=== PATIENT | male | born 1940 | race African-American/Black ===

== ENCOUNTER 2017-04-17 10:35 | Emergency (ER) | payer MEDICARE, OTHER ==
[~2017-04-17] VITALS: Ht 167.6 cm; Wt 81.6 kg
[~2017-04-17 10:35] MED LIST: AMLO1CAP6 PO; ASPI-618 PO; ATOR10TA PO; Acetaminophen PO; BUPR300T52 PO; Blood Sugar Diagnostic VI; DUTA0.5C PO; ERGO500047 PO; ESCI20TA PO; Metformin Hcl PO; OMEG1CAP GT; PANT40TA2 PO; TRAZ-144 PO
[2017-04-17] MEDS ORDERED: IV NORMAL SALINE 1000 ML BAG IV ONE (11:00)
--- NOTE | 2017-04-17 11:00 | NUR ---
DR CARTAGENA AT THE BEDSIDE FOR EVAL AND EXAM.
[2017-04-17 11:21] LABS: BASOPHILS % (AUTO) 0.6 % (0.0-2.0); EOSINOPHILS # (AUTO) 0.1 K/uL (0.0-0.7); EOSINOPHILS % (AUTO) 0.9 % (0.0-7.0); HEMATOCRIT 45.1 % (40-50); HEMOGLOBIN 15.2 G/DL (14.0-18.0); LYMPHOCYTES # (AUTO) 1.8 K/UL (0.8-4.8); LYMPHOCYTES % (AUTO) 25.2 % (20.5-51.5); MEAN CORPUSCULAR HEMOGLOBIN 28.6 UUG (27.0-31.0); MEAN CORPUSCULAR HGB CONC 34 g/dL (32.0-37.0); MEAN CORPUSCULAR VOLUME 84.9 FL (82.0-92.0); MONOCYTES # (AUTO) 0.3 K/UL (0.1-1.30); MONOCYTES % (AUTO) 4.6 % (0.0-11.0); NEUTROPHILS # (AUTO) 5.1 K/UL (1.8-8.9); NEUTROPHILS % (AUTO) 68.7 % (38.5-71.5); PLATELET COUNT (AUTO) 225 K/UL (150-450); RED BLOOD CELL COUNT(AUTO) 5.31 MIL/UL (4.7-6.1); WHITE BLOOD COUNT (AUTO) 7.3 K/UL (4.0-11.2)
[2017-04-17 11:33] LABS: CARBON DIOXIDE 25 mmol/L (21-32); CHLORIDE 103 mmol/L (98-107); CREATININE 1.2 mg/dL (0.6-1.3); GLUCOSE 133 mg/dL (74-106); POTASSIUM 3.9 mmol/L (3.5-5.1); UREA NITROGEN, BLOOD 16 mg/dL (7-18)
[2017-04-17 11:38] LABS: ALANINE AMINOTRANSFERASE 29 U/L (16-63); ALKALINE PHOSPHATASE 57 U/L (50-136); ASPARTATE AMINOTRANSFERASE 16 U/L (15-37); BILIRUBIN,DIRECT 0.1 mg/dL (0.0-0.2); BILIRUBIN,TOTAL 0.5 mg/dL (0.2-1.0); LIPASE 151 U/L (73-393); TOTAL PROTEIN, SERUM 7.7 g/dL (6.4-8.2)
[2017-04-17] MEDS ORDERED: ONDANSETRON IV *ER 4 MG/2 ML VIAL IV ONE (11:45)
[2017-04-17] MEDS ORDERED: ONDANSETRON 4 MG/2 ML VIAL ONE (11:54)
--- NOTE | 2017-04-17 12:14 | NUR ---
PT ABLE TO TOLORATE PO, DENIES PAIN AND NAUSEA.
[2017-04-17 12:33] VITALS: BP 150/76
--- NOTE | 2017-04-17 12:33 | NUR ---
Patient discharged to home in stable conditon. Written and verbal after care instructions given. Patient verbalizes understanding of instructions.
--- NOTE | 2017-04-17 12:33 | NUR ---
IV removed. Catheter intact and site benign. Pressure and 4x4 gauze applied to site. No bleeding noted.
== END 2017-04-17 12:34 | disposition home or self-care (01) ==
LOC: ER 10:35
DX: K44.9 Diaphragmatic hernia without obstruction or gangrene (principal); I10 Essential (primary) hypertension; E78.00 Pure hypercholesterolemia, unspecified; E11.9 Type 2 diabetes mellitus without complications; F41.9 Anxiety disorder, unspecified; F17.200 Nicotine dependence, unspecified, uncomplicated; E78.5 Hyperlipidemia, unspecified; Z79.82 Long term (current) use of aspirin
CPT/HCPCS: 36415; 71010; 74176; 80048; 80076; 82962; 83605; 83690; 84484; 85025; 85730; 87040; 93005; 96360; 96374; 99285; A4663; J2405; J7030; 70030-TC

== ENCOUNTER 2017-10-30 00:49 | Emergency (ER) | payer MEDICARE, OTHER ==
[~2017-10-30] VITALS: Ht 175.3 cm; Wt 92.5 kg
[~2017-10-30 00:49] MED LIST changes: +ERGO500014 PO; -ERGO500047 PO
[2017-10-30] MEDS ORDERED: predniSONE 20 MG TABLET PO ONE (01:45)
[2017-10-30] MEDS ORDERED: AZITHROMYCIN 250 MG TABLET PO ONE (01:45)
--- NOTE | 2017-10-30 01:49 | NUR ---
Patient discharged to home in stable conditon. Written and verbal after care instructions given. Patient verbalizes understanding of instructions.
[2017-10-30] MEDS ORDERED: predniSONE 10 MG TABLET ONE (02:00)
[2017-10-30] MEDS ORDERED: AZITHROMYCIN 250 MG TABLET ONE (02:00)
[2017-10-30] MEDS ORDERED: predniSONE 50 MG TABLET ONE (02:00)
== END 2017-10-30 01:50 | disposition home or self-care (01) ==
LOC: ER 00:57
DX: J40 Bronchitis, not specified as acute or chronic (principal); E11.9 Type 2 diabetes mellitus without complications; E78.00 Pure hypercholesterolemia, unspecified; I10 Essential (primary) hypertension; Z79.82 Long term (current) use of aspirin; F17.200 Nicotine dependence, unspecified, uncomplicated
CPT/HCPCS: A4663; J7512; Q0144

== ENCOUNTER 2017-11-06 23:57 | Emergency (ER) | payer MEDICARE, OTHER ==
[~2017-11-06] VITALS: Ht 172.7 cm; Wt 92.5 kg
--- NOTE | 2017-11-07 02:40 | NUR ---
Patient discharged to home in stable conditon. Written and verbal after care instructions given. Patient verbalizes understanding of instructions.
== END 2017-11-07 02:42 | disposition home or self-care (01) ==
LOC: ER 23:57
DX: H66.92 Otitis media, unspecified, left ear (principal); I10 Essential (primary) hypertension; E78.5 Hyperlipidemia, unspecified; E11.9 Type 2 diabetes mellitus without complications; Z79.82 Long term (current) use of aspirin; E78.00 Pure hypercholesterolemia, unspecified; F17.200 Nicotine dependence, unspecified, uncomplicated
CPT/HCPCS: 99283; A4663

== ENCOUNTER 2017-11-13 22:04 | Emergency (ER) | payer MEDICARE, OTHER ==
[~2017-11-13] VITALS: Ht 175.3 cm; Wt 93.0 kg
--- NOTE | 2017-11-14 00:48 | NUR ---
Patient discharged to home in stable conditon. Written and verbal after care instructions given. Patient verbalizes understanding of instructions.
== END 2017-11-14 00:49 | disposition home or self-care (01) ==
LOC: ER 22:06
DX: H66.92 Otitis media, unspecified, left ear (principal); E78.00 Pure hypercholesterolemia, unspecified; E11.9 Type 2 diabetes mellitus without complications; I10 Essential (primary) hypertension; Z79.82 Long term (current) use of aspirin; F17.200 Nicotine dependence, unspecified, uncomplicated
CPT/HCPCS: A4663

== ENCOUNTER 2018-02-01 18:09 | Emergency (ER) | payer MEDICARE, OTHER ==
[~2018-02-01] VITALS: Ht 175.3 cm; Wt 81.6 kg
[2018-02-01] MEDS ORDERED: ALPRAZOLAM 0.25 MG TABLET PO ONE (19:00)
[2018-02-01] MEDS ORDERED: ALPRAZOLAM 0.25 MG TABLET ONE (19:07)
--- NOTE | 2018-02-01 19:07 | NUR ---
Patient discharged to home in stable conditon. Written and verbal after care instructions given. Patient verbalizes understanding of instructions.PT WALKS IN STEADY GAIT. NO SIGN OF DISTRESS, BREATHING NORMALLY.
== END 2018-02-01 19:10 | disposition home or self-care (01) ==
LOC: ER 18:09
DX: F41.1 Generalized anxiety disorder (principal); F32.9 Major depressive disorder, single episode, unspecified; E78.5 Hyperlipidemia, unspecified; I10 Essential (primary) hypertension; E11.9 Type 2 diabetes mellitus without complications; Z79.82 Long term (current) use of aspirin; Z79.84 Long term (current) use of oral hypoglycemic drugs; Z79.891 Long term (current) use of opiate analgesic; Z79.899 Other long term (current) drug therapy
CPT/HCPCS: A4663

== ENCOUNTER 2020-12-15 16:20 | Emergency (ER) | payer MEDICARE, OTHER ==
[~2020-12-15] VITALS: Ht 175.3 cm; Wt 83.9 kg
[~2020-12-15 16:20] MED LIST changes: -TRAZ-144 PO; +TRAZ-182 PO
--- NOTE | 2020-12-15 16:31 | NUR ---
Dr Wilson at the bedside for MSE.
[2020-12-15] MEDS ORDERED: MAGNESIUM HYDROXIDE 30 ML LIQUID UDC ONE (16:41)
[2020-12-15] MEDS ORDERED: MAGNESIUM CITRATE 296 ML BOTTLE ONE (16:41)
[2020-12-15] MEDS ORDERED: MAGNESIUM CITRATE 296 ML BOTTLE PO ONE (16:45)
[2020-12-15] MEDS ORDERED: MAGNESIUM HYDROXIDE 30 ML LIQUID UDC PO ONE (16:45)
--- NOTE | 2020-12-15 17:14 | NUR ---
Result of xray translated by me for PT/MD.
[2020-12-15 17:20] VITALS: BP 132/76
--- NOTE | 2020-12-15 17:21 | NUR ---
Patient discharged to home in stable condition. Written and verbal after care instructions given. Patient verbalizes understanding of instructions. Stressed follow up or return to ER for worsening s/s.
== END 2020-12-15 17:22 | disposition home or self-care (01) ==
LOC: ER 16:22
DX: K59.00 Constipation, unspecified (principal); S39.92XA Unspecified injury of lower back, initial encounter; M54.9 Dorsalgia, unspecified; W18.39XA Other fall on same level, initial encounter; Y93.89 Activity, other specified; Y92.89 Other specified places as the place of occurrence of the external cause; M51.36 Other intervertebral disc degeneration, lumbar region; I10 Essential (primary) hypertension; E78.5 Hyperlipidemia, unspecified; F41.9 Anxiety disorder, unspecified; F32.9 Major depressive disorder, single episode, unspecified; Z79.899 Other long term (current) drug therapy
CPT/HCPCS: 72100; A4663

== ENCOUNTER 2022-05-03 10:16 | Inpatient (IN) | payer MEDICARE, OTHER ==
[~2022-05-03] VITALS: Ht 175.3 cm; Wt 79.4 kg
[2022-05-03] MEDS ORDERED: JANUMET (10:48)
[2022-05-03] MEDS ORDERED: [UNRECOGNIZED DRUG - OTHER] (10:48)
[2022-05-03] MEDS ORDERED: WELLBUTRIN (10:48)
[2022-05-03 11:39] LABS: HEMATOCRIT 39.7 % (36.7-47.1); MEAN CORPUSCULAR HEMOGLOBIN 28.3 uug (23.8-33.4); MEAN CORPUSCULAR VOLUME 85.2 fL (73.0-96.2); PLATELET COUNT (AUTO) 155 K/uL (152-348)
[2022-05-03 11:46] LABS: CARBON DIOXIDE 31 mmol/L (21-32); CHLORIDE 103 mmol/L (98-107); CREATININE 1.4 mg/dL (0.6-1.3); GLUCOSE 237 mg/dL (74-106); POTASSIUM 3.7 mmol/L (3.5-5.1); UREA NITROGEN, BLOOD 23 mg/dL (7-18)
[2022-05-03 11:59] LABS: ALANINE AMINOTRANSFERASE 42 U/L (16-63); ALKALINE PHOSPHATASE 55 U/L (50-136); ASPARTATE AMINOTRANSFERASE 18 U/L (15-37); BILIRUBIN,DIRECT 0.1 mg/dL (0.0-0.2); BILIRUBIN,TOTAL 0.5 mg/dL (0.2-1.0); TOTAL PROTEIN, SERUM 6.7 g/dL (6.4-8.2)
[2022-05-03] MEDS ORDERED: SWABABLE VALVE TRANSFER SET EA MC ONE (12:17)
[2022-05-03] MEDS ORDERED: IV NORMAL SALINE 250 ML IV ONE (12:17)
[2022-05-03] MEDS ORDERED: IOHEXOL 350 100 ML INFUS..BTL ONE (12:17)
--- NOTE | 2022-05-03 17:40 | NUR ---
ADMITTED FROM ER A 81 YO MALE WITH ADMITTING DX OF NON-STEMI AWAKE ALERT AND VERBALLY RESPONSIVE, DENIES PAIN. CONNECTED ON MONITOR
--- NOTE | 2022-05-03 18:51 | NUR ---
TRIED TO REACH DR HEBER JONES FOR BP 175/104 STILL WAITING FOR ORDERS
[2022-05-03] MEDS ORDERED: DEXTROSE 50% 50 ML DISP.SYRIN IV PRN (19:15)
[2022-05-03] MEDS ORDERED: REMEDY ESSENTIAL ZINC PASTE 113 GM TP PRN (19:15)
[2022-05-03] MEDS ORDERED: ZOLPIDEM 5 MG TABLET PO PRN (19:15)
[2022-05-03] MEDS ORDERED: ACETAMINOPHEN 325 MG TABLET PO PRN (19:15)
[2022-05-03] MEDS ORDERED: ONDANSETRON 4 MG/2 ML VIAL IV PRN (19:15)
[2022-05-03] MEDS ORDERED: hydrALAZINE HCL 25 MG TABLET PO PRN (19:45)
[2022-05-03 20:00] VITALS: BP 122/54
[2022-05-03] MEDS ORDERED: TRAZODONE 50 MG TABLET PO PRN (21:00)
[2022-05-03] MEDS ORDERED: ATORVASTATIN 10 MG TABLET PO SCH (21:00)
[2022-05-03] MEDS: CEFTRIAXONE 1 G in IV DEXTROSE 5% 50 ML IV SCH (21:29)
[2022-05-03] MEDS: IV NS 1000 ML 1,000 ML IV PRN (21:30)
[2022-05-03] MEDS: ENOXAPARIN SODIUM 40 MG/0.4 ML DISP.SYRIN SQ SCH (21:30)
[2022-05-03] MEDS: BLOOD SUGAR DIAGNOSTIC 1 EACH STRIP VI SCH (21:51)
[2022-05-03] MEDS: INSULIN REGULAR, HUMAN 300 UNIT/3 ML VIAL SQ PRN (21:53)
[2022-05-03] MEDS: AZITHROMYCIN IV 250 MG in IV DEXTROSE 5% 250 ML IV SCH (21:54)
[2022-05-03] MEDS: GUAIFENESIN LA 600 MG TABLET.SA PO SCH (22:58)
[2022-05-04 00:01] VITALS: BP 120/51
[2022-05-04] MEDS: IPRATROPIUM BROMIDE 0.5 MG/2.5 ML NEBU NEB SCH ×7 (00:27→23:30)
[2022-05-04] MEDS: ALBUTEROL SULFATE 2.5 MG/3 ML NEBU NEB SCH ×7 (00:28→23:30)
[2022-05-04 04:00] VITALS: BP 167/82
--- NOTE | 2022-05-04 05:32 | NUR ---
Slept throughout the night. Denies SOB or chest pain. Pt is mainly Farsi speaking, but is able to communicate needs in Icelandic. IV site intact. Able to ambulate without assistance. Safety maintained throughout the shift. Will endorse to day shift.
[2022-05-04 06:08] LABS: HEMATOCRIT 38.6 % (36.7-47.1); MEAN CORPUSCULAR HEMOGLOBIN 28.4 uug (23.8-33.4); MEAN CORPUSCULAR VOLUME 84.4 fL (73.0-96.2); PLATELET COUNT (AUTO) 125 K/uL (152-348)
[2022-05-04] MEDS: PANTOPRAZOLE SODIUM 40 MG TABLET.DR PO SCH (06:10)
[2022-05-04] MEDS: BLOOD SUGAR DIAGNOSTIC 1 EACH STRIP VI SCH ×4 (06:31→20:48)
[2022-05-04 06:34] LABS: BILIRUBIN,TOTAL 0.5 mg/dL (0.2-1.0); CREATININE 1.2 mg/dL (0.6-1.3); MAGNESIUM 2.1 mg/dL (1.8-2.4); PHOSPHOROUS 3.8 mg/dL (2.5-4.9); POTASSIUM 3.5 mmol/L (3.5-5.1); TOTAL PROTEIN, SERUM 6.6 g/dL (6.4-8.2)
[2022-05-04 06:35] LABS: THYROID STIMULATING HORMONE 0.755 mIU/mL (0.358-3.740)
[2022-05-04] MEDS ORDERED: PANTOPRAZOLE SODIUM 40 MG TABLET.DR PO SCH (07:00)
[2022-05-04] MEDS ORDERED: DUTASTERIDE 0.5 MG CAPSULE PO SCH (09:00)
[2022-05-04] MEDS ORDERED: OMEGA-3 FATTY ACIDS/FISH OIL CAPSULE PO SCH (09:00)
[2022-05-04] MEDS: GUAIFENESIN LA 600 MG TABLET.SA PO SCH ×2 (09:04→20:48)
[2022-05-04] MEDS: ASPIRIN EC 81 MG TABLET.DR PO SCH (09:04)
[2022-05-04] MEDS: BENAZEPRIL HCL 20 MG TABLET PO SCH (09:11)
[2022-05-04] MEDS: AMLODIPINE 5 MG TABLET PO SCH (09:11)
[2022-05-04] MEDS: INSULIN REGULAR, HUMAN 300 UNIT/3 ML VIAL SQ PRN ×4 (09:14→20:49)
--- NOTE | 2022-05-04 10:00 | NUR ---
Patient is AAO x4, speaking Farsi. Denies any pain or coughing. No SOB noted, frequent cough noted. Remains on RA. Sinus rhythm on telemetry. Patient continues on Zithromax and Rocephin, no adverse reactions noted. Able to ambulate, steady strong gait. Has a good appetite, able to eat 100% of breakfast. Spoke to daughter Barrie and provided an update on patient's status. in unit to visit patient but informed patient can not have visitors to PUI status. COVID isolation continued. All needs attended, call light within reach.
[2022-05-04 12:09] VITALS: BP 108/44
[2022-05-04] MEDS ORDERED: QUET25TA36 PO (13:26)
[2022-05-04] MEDS ORDERED: ROSU20TA2 PO ×2 (13:28→13:50)
[2022-05-04] MEDS ORDERED: METO-356 PO (13:28)
[2022-05-04] MEDS ORDERED: VENL150C58 PO (13:28)
[2022-05-04] MEDS ORDERED: SITA1TBM4 PO (13:29)
[2022-05-04] MEDS ORDERED: ICOS1CAP PO (13:31)
[2022-05-04] MEDS ORDERED: DAPA10TA PO (13:31)
[2022-05-04] MEDS ORDERED: MIRA50TA PO (13:31)
[2022-05-04] MEDS ORDERED: SEMA1PEN SQ (13:31)
[2022-05-04] MEDS ORDERED: CHOL-35 PO (13:45)
[2022-05-04] MEDS ORDERED: CETI-90 PO (13:50)
[2022-05-04] MEDS ORDERED: MAGN400T26 PO (13:50)
[2022-05-04] MEDS: IV NS 1000 ML 1,000 ML IV PRN (14:00)
[2022-05-04] MEDS: OMEGA-3 FATTY ACIDS/FISH OIL CAPSULE PO SCH (16:14)
[2022-05-04 18:14] VITALS: BP 118/55
[2022-05-04 20:25] VITALS: BP 136/63
[2022-05-04] MEDS: CEFTRIAXONE 1 G in IV DEXTROSE 5% 50 ML IV SCH (20:46)
[2022-05-04] MEDS: QUETIAPINE FUMARATE 25 MG TABLET PO SCH (20:47)
[2022-05-04] MEDS: ATORVASTATIN 40 MG TABLET PO SCH (20:47)
[2022-05-04] MEDS: ENOXAPARIN SODIUM 40 MG/0.4 ML DISP.SYRIN SQ SCH (20:48)
[2022-05-04] MEDS: AZITHROMYCIN IV 250 MG in IV DEXTROSE 5% 250 ML IV SCH (22:07)
[2022-05-05 00:03] VITALS: BP 143/57
[2022-05-05] MEDS: ALBUTEROL SULFATE 2.5 MG/3 ML NEBU NEB SCH ×4 (02:44→15:18)
[2022-05-05] MEDS: IPRATROPIUM BROMIDE 0.5 MG/2.5 ML NEBU NEB SCH ×4 (02:44→15:18)
[2022-05-05 04:35] VITALS: BP 145/64
[2022-05-05] MEDS: PANTOPRAZOLE SODIUM 40 MG TABLET.DR PO SCH (06:04)
[2022-05-05] MEDS: IV NS 1000 ML 1,000 ML IV PRN (06:04)
[2022-05-05] MEDS: BLOOD SUGAR DIAGNOSTIC 1 EACH STRIP VI SCH ×4 (06:34→20:18)
[2022-05-05 06:38] LABS: HEMATOCRIT 35.7 % (36.7-47.1); MEAN CORPUSCULAR HEMOGLOBIN 28.3 uug (23.8-33.4); MEAN CORPUSCULAR VOLUME 84.1 fL (73.0-96.2); PLATELET COUNT (AUTO) 130 K/uL (152-348)
[2022-05-05 06:45] LABS: CREATININE 1.1 mg/dL (0.6-1.3); PHOSPHOROUS 3.8 mg/dL (2.5-4.9); POTASSIUM 3.3 mmol/L (3.5-5.1)
[2022-05-05] MEDS: ASPIRIN EC 81 MG TABLET.DR PO SCH (08:28)
[2022-05-05] MEDS: AMLODIPINE 5 MG TABLET PO SCH (08:28)
[2022-05-05] MEDS: OMEGA-3 FATTY ACIDS/FISH OIL CAPSULE PO SCH ×2 (08:28→17:11)
[2022-05-05] MEDS: GUAIFENESIN LA 600 MG TABLET.SA PO SCH ×2 (08:28→20:16)
[2022-05-05] MEDS: BENAZEPRIL HCL 20 MG TABLET PO SCH (08:29)
[2022-05-05] MEDS: INSULIN REGULAR, HUMAN 300 UNIT/3 ML VIAL SQ PRN ×4 (08:39→20:24)
[2022-05-05] MEDS ORDERED: VENLAFAXINE XR 150 MG CAP.SR.24H PO SCH (09:00)
[2022-05-05] MEDS ORDERED: CETIRIZINE HCL 10 MG TABLET PO PRN (09:00)
[2022-05-05] MEDS ORDERED: METOPROLOL SUCCINATE XL 25 MG TAB.SR.24H PO SCH (09:00)
[2022-05-05] MEDS ORDERED: CHOLECALCIFEROL 1,000 UNIT TABLET PO SCH (09:00)
[2022-05-05] MEDS ORDERED: MAGNESIUM OXIDE 400 MG TABLET PO SCH (09:00)
[2022-05-05] MEDS ORDERED: POTASSIUM CHLORIDE 20 MEQ TAB.PRT.SR PO ONE (09:15)
--- NOTE | 2022-05-05 10:30 | NUR ---
Patient PCR test is negative for COVID. Patient remove from covid room and reassigned to clean room, off isolation, aware. Daughter Mary Ann and patient aware. Telemetry is NSR, no ectopy. Still noted with dry cough, no phlegm. NO SOB or chest pain, on RA. Patient able to ambulate without walking device or assistance. All needs attended, call light within reach.
[2022-05-05 11:14] VITALS: BP 130/71
[2022-05-05 15:05] VITALS: BP 131/52
--- NOTE | 2022-05-05 19:00 | NUR ---
Received patient on bed, awake, no shortness of breath, no chest pain noted, with ongoing IVF NS 1L at 75cc/hr. No complaint of pain. For discharge, no order at this time.
[2022-05-05] MEDS: QUETIAPINE FUMARATE 25 MG TABLET PO SCH (20:16)
[2022-05-05] MEDS: ATORVASTATIN 40 MG TABLET PO SCH (20:16)
[2022-05-05 20:20] VITALS: BP 153/69
[2022-05-05] MEDS: ENOXAPARIN SODIUM 40 MG/0.4 ML DISP.SYRIN SQ SCH (20:29)
[2022-05-05] MEDS: CEFTRIAXONE 1 G in IV DEXTROSE 5% 50 ML IV SCH (21:00)
--- NOTE | 2022-05-05 21:00 | NUR ---
Recephin IV and Zithromax IV not given, not issue from the pharmacy, per Dr Fitzgerald patient for discharge tonight.
[2022-05-05] MEDS ORDERED: DOXY-326 PO (21:32)
[2022-05-05] MEDS ORDERED: ALBU8.5H8 INH (21:32)
[2022-05-05] MEDS ORDERED: PRED20TA PO (21:32)
[2022-05-05] MEDS ORDERED: AMOX-427 PO (21:32)
[2022-05-05] MEDS: AZITHROMYCIN IV 250 MG in IV DEXTROSE 5% 250 ML IV SCH (22:00)
--- NOTE | 2022-05-05 22:20 | NUR ---
Patient discharged as ordered. All belongings reviewed with patient, with 2 credit cards and $32 grant checked with patient. IV line removed. Discharged documents give to patient. Patient in stable condition, not in respiratory distress,brought downstairs per wheelchair, Fetch by daughter Jeramy.
[2022-05-06] MEDS ORDERED: ERGOCALCIFEROL 50,000 UNIT CAPSULE PO SCH (09:00)
== END 2022-05-05 22:20 | disposition home or self-care (01) | DRG 280 ==
LOC: ER 10:16 → TELE3 17:10
PROVIDERS: ADMIT Nurse Practitioner Acute Care; ATTEND Nurse Practitioner Acute Care
DX: I21.4 Non-ST elevation (NSTEMI) myocardial infarction (principal); N17.0 Acute kidney failure with tubular necrosis; J20.8 Acute bronchitis due to other specified organisms; Z20.822 Contact with and (suspected) exposure to COVID-19; E11.9 Type 2 diabetes mellitus without complications; F32.A Depression, unspecified; F41.9 Anxiety disorder, unspecified; I10 Essential (primary) hypertension; K21.9 Gastro-esophageal reflux disease without esophagitis; N40.0 Benign prostatic hyperplasia without lower urinary tract symptoms; Z79.82 Long term (current) use of aspirin; Z79.84 Long term (current) use of oral hypoglycemic drugs; Z90.79 Acquired absence of other genital organ(s); R53.81 Other malaise; E78.5 Hyperlipidemia, unspecified
CPT/HCPCS: 36415; 71045; 83735; 84100; 84443; 84484; 85025; 85730; 87070; 93005; 93307; 94640; 94664; A4663; G0378; J0456; J0696; J1650; J1815; J3590; J7040; J7050; Q9967; U0003

== ENCOUNTER 2022-06-04 21:51 | Emergency (ER) | payer MEDICARE, OTHER ==
[~2022-06-04] VITALS: Ht 175.3 cm; Wt 79.4 kg
[~2022-06-04 21:51] MED LIST changes: +ALBU8.5H8 INH; +AMOX-427 PO; -ATOR10TA PO; -Acetaminophen PO; -BUPR300T52 PO; -Blood Sugar Diagnostic VI; +CETI-90 PO; +CHOL-35 PO; +DAPA10TA PO; +DOXY-326 PO; -DUTA0.5C PO; -ERGO500014 PO; -ESCI20TA PO; +ICOS1CAP PO; +MAGN400T26 PO; +METO-356 PO; +MIRA50TA PO; -Metformin Hcl PO; -OMEG1CAP GT; -PANT40TA2 PO; +PRED20TA PO; +QUET25TA36 PO; +ROSU20TA2 PO; +SEMA1PEN SQ; +SITA1TBM4 PO; -TRAZ-182 PO; +VENL150C58 PO
[2022-06-04] MEDS ORDERED: PROCHLORPERAZINE EDISYLATE 10 MG/2 ML VIAL IV ONE (23:00)
[2022-06-04 23:10] LABS: HEMATOCRIT 39.7 % (36.7-47.1); MEAN CORPUSCULAR HEMOGLOBIN 28.4 uug (23.8-33.4); MEAN CORPUSCULAR VOLUME 84.4 fL (73.0-96.2); PLATELET COUNT (AUTO) 182 K/uL (152-348)
[2022-06-04 23:19] LABS: CARBON DIOXIDE 31 mmol/L (21-32); CHLORIDE 105 mmol/L (98-107); CREATININE 1.1 mg/dL (0.6-1.3); GLUCOSE 111 mg/dL (74-106); POTASSIUM 4.3 mmol/L (3.5-5.1); UREA NITROGEN, BLOOD 22 mg/dL (7-18)
[2022-06-04 23:35] LABS: ALANINE AMINOTRANSFERASE 22 U/L (16-63); ALKALINE PHOSPHATASE 54 U/L (50-136); ASPARTATE AMINOTRANSFERASE 12 U/L (15-37); BILIRUBIN,DIRECT 0.1 mg/dL (0.0-0.2); BILIRUBIN,TOTAL 0.3 mg/dL (0.2-1.0); TOTAL PROTEIN, SERUM 6.8 g/dL (6.4-8.2)
[2022-06-04] MEDS ORDERED: PROCHLORPERAZINE EDISYLATE 10 MG/2 ML VIAL ONE (23:42)
[2022-06-05] MEDS ORDERED: HYDR-3972 PO (00:32)
[2022-06-05] MEDS ORDERED: CHOL100053 PO (00:32)
[2022-06-05] MEDS ORDERED: PROC10TA29 PO (00:33)
--- NOTE | 2022-06-05 00:43 | NUR ---
Patient discharged to home in stable condition. Written and verbal after care instructions given. Patient verbalizes understanding of instructions. Stressed follow up or return to ER for worsening s/s. pt ambulated wtih steady gait. denies pain.
[2022-06-05 00:44] VITALS: BP 154/71
[2022-06-05] MEDS ORDERED: PROCHLORPERAZINE EDISYLATE 10 MG/2 ML VIAL IM ONE (00:45)
== END 2022-06-05 00:44 | disposition home or self-care (01) ==
LOC: ER 21:52
DX: F32.A Depression, unspecified (principal); R42 Dizziness and giddiness; F17.200 Nicotine dependence, unspecified, uncomplicated; E78.00 Pure hypercholesterolemia, unspecified; Z90.79 Acquired absence of other genital organ(s)
CPT/HCPCS: 99285; 71045; 80076; 80048; 83880; 83735; 85025; 84484; 36415; 93005; 96372; J0780; A4663

== ENCOUNTER 2023-02-15 22:13 | Inpatient (IN) | payer MEDICARE, OTHER ==
[~2023-02-15] VITALS: Ht 175.3 cm; Wt 79.4 kg
[~2023-02-15 22:13] MED LIST changes: +CHOL100053 PO; +HYDR-3972 PO; +PROC10TA29 PO
[2023-02-15 23:35] LABS: HEMATOCRIT 42.9 % (36.7-47.1); MEAN CORPUSCULAR HEMOGLOBIN 27.9 uug (23.8-33.4); MEAN CORPUSCULAR VOLUME 84.6 fL (73.0-96.2); PLATELET COUNT (AUTO) 179 K/uL (152-348)
[2023-02-16 00:26] LABS: ALANINE AMINOTRANSFERASE 38 U/L (16-63); ALKALINE PHOSPHATASE 74 U/L (50-136); ASPARTATE AMINOTRANSFERASE 20 U/L (15-37); BILIRUBIN,DIRECT 0.1 mg/dL (0.0-0.2); BILIRUBIN,TOTAL 0.5 mg/dL (0.2-1.0); CARBON DIOXIDE 23 mmol/L (21-32); CHLORIDE 100 mmol/L (98-107); CREATININE 1.1 mg/dL (0.6-1.3); POTASSIUM 3.7 mmol/L (3.5-5.1); TOTAL PROTEIN, SERUM 7.6 g/dL (6.4-8.2); UREA NITROGEN, BLOOD 20 mg/dL (7-18)
[2023-02-16 00:28] LABS: GLUCOSE 373 mg/dL (74-106)
[2023-02-16 00:31] LABS: *BILIRUBIN,URIN NEGATIVE (NEGATIVE); *CLARITY,URINE CLEAR (CLEAR); *COLOR,URINE YELLOW (YELLOW); *KETONES,URINE 1+ (NEGATIVE); *UROBILINOGEN,URINE 0.2 E.U./dl (NORMAL); LEUKOCYTE ESTERASE ,URINE NEGATIVE (NEGATIVE); NITRITE, URINE NEGATIVE (NEGATIVE); PH,URINE 5.5 (5.0-8.0)
[2023-02-16 00:34] LABS: *BLOOD, URINE NEGATIVE (NEGATIVE); UGLUCOSE 2+ (NEGATIVE)
[2023-02-16 00:35] LABS: BACTERIA,URINE FEW /HPF (NONE SEEN); RBC,URINE 0-3 /HPF (0-3); SQUAMOUS EPITHELIAL CELL,UR NONE SEEN /HPF (NONE SEEN); WBC,URINE NONE SEEN /HPF (0-3)
[2023-02-16] MEDS ORDERED: ASPIRIN 81 MG TAB.CHEW PO ONE (00:45)
[2023-02-16] MEDS ORDERED: METOPROLOL TARTRATE 50 MG TABLET PO ONE (00:45)
[2023-02-16] MEDS ORDERED: ENOXAPARIN SODIUM 80 MG/0.8 ML DISP.SYRIN SQ ONE ×2 (00:45→01:09)
[2023-02-16] MEDS ORDERED: NITROGLYCERIN OINT 1 GM PACKET TP ONE ×2 (00:45→01:08)
[2023-02-16] MEDS ORDERED: REMEDY ESSENTIAL ZINC PASTE 113 GM TP PRN (01:00)
[2023-02-16] MEDS ORDERED: MAGNESIUM HYDROXIDE 30 ML LIQUID UDC PO PRN (01:00)
[2023-02-16] MEDS ORDERED: ACETAMINOPHEN 325 MG TABLET PO PRN (01:00)
[2023-02-16] MEDS ORDERED: ONDANSETRON 4 MG/2 ML VIAL IV PRN (01:00)
[2023-02-16] MEDS ORDERED: METOPROLOL TARTRATE 50 MG TABLET ONE (01:08)
[2023-02-16] MEDS ORDERED: MAGNESIUM SULFATE/D5W 100 ML ONE ×2 (01:08→02:16)
[2023-02-16] MEDS ORDERED: ASPIRIN 81 MG TAB.CHEW ONE (01:08)
[2023-02-16] MEDS: MAGNESIUM SULFATE/D5W 100 ML IV SCH ×2 (01:15→02:17)
[2023-02-16 04:01] VITALS: BP 132/71
[2023-02-16] MEDS: ASPIRIN 81 MG TAB.CHEW PO SCH (10:01)
[2023-02-16] MEDS ORDERED: CEFTRIAXONE 1 G in IV DEXTROSE 5% 50 ML IV SCH (11:00)
[2023-02-16] MEDS ORDERED: BUPR450T3 PO (11:09)
[2023-02-16 11:45] VITALS: BP 132/65
[2023-02-16] MEDS ORDERED: CHOLECALCIFEROL 1,000 UNIT TABLET PO SCH (11:45)
[2023-02-16] MEDS: BLOOD SUGAR DIAGNOSTIC 1 EACH STRIP VI SCH ×2 (11:45→20:32)
[2023-02-16] MEDS ORDERED: DEXTROSE 50% 50 ML DISP.SYRIN IV PRN (11:45)
[2023-02-16] MEDS: INSULIN REGULAR, HUMAN 300 UNIT/3 ML VIAL SQ PRN ×2 (13:16→20:31)
[2023-02-16] MEDS: DOXYCYCLINE HYCLATE 100 MG TABLET PO SCH ×2 (14:04→20:20)
[2023-02-16] MEDS: AMLODIPINE 5 MG TABLET PO SCH (14:04)
[2023-02-16] MEDS: METOPROLOL SUCCINATE XL 25 MG TAB.SR.24H PO SCH (14:04)
[2023-02-16] MEDS: BENAZEPRIL HCL 20 MG TABLET PO SCH (14:04)
[2023-02-16] MEDS: VENLAFAXINE XR 150 MG CAP.SR.24H PO SCH (14:35)
[2023-02-16 15:40] VITALS: BP 106/41
[2023-02-16] MEDS ORDERED: Icosapent Ethyl (Vascepa) 2 GM) PO SCH (17:00)
[2023-02-16 20:00] VITALS: BP 122/60
[2023-02-16] MEDS: ATORVASTATIN 40 MG TABLET PO SCH (20:20)
[2023-02-16] MEDS: QUETIAPINE FUMARATE 25 MG TABLET PO SCH (20:20)
[2023-02-16] MEDS: CEFTRIAXONE 1 G in IV DEXTROSE 5% 50 ML IV SCH (22:38)
[2023-02-17] VITALS: BP 119/56
[2023-02-17 04:00] VITALS: BP 111/60
[2023-02-17 06:17] LABS: HEMATOCRIT 37.9 % (36.7-47.1); MEAN CORPUSCULAR HEMOGLOBIN 28.2 uug (23.8-33.4); MEAN CORPUSCULAR VOLUME 84.4 fL (73.0-96.2); PLATELET COUNT (AUTO) 154 K/uL (152-348)
[2023-02-17] MEDS: BLOOD SUGAR DIAGNOSTIC 1 EACH STRIP VI SCH ×4 (06:34→20:48)
[2023-02-17 06:48] LABS: CARBON DIOXIDE 26 mmol/L (21-32); CHLORIDE 104 mmol/L (98-107); CHOLESTEROL 125 mg/dL (<200); CREATININE 0.8 mg/dL (0.6-1.3); GLUCOSE 172 mg/dL (74-106); HDL CHOLESTEROL 35 mg/dL (40-60); MAGNESIUM 1.9 mg/dL (1.8-2.4); PHOSPHOROUS 3.6 mg/dL (2.5-4.9); POTASSIUM 3.5 mmol/L (3.5-5.1); TRIGLYCERIDES 103 MG/DL (30-150); UREA NITROGEN, BLOOD 25 mg/dL (7-18)
[2023-02-17] MEDS: DOXYCYCLINE HYCLATE 100 MG TABLET PO SCH ×2 (08:09→20:15)
[2023-02-17] MEDS: ASPIRIN 81 MG TAB.CHEW PO SCH (08:09)
[2023-02-17] MEDS: METOPROLOL SUCCINATE XL 25 MG TAB.SR.24H PO SCH (08:09)
[2023-02-17] MEDS: BENAZEPRIL HCL 20 MG TABLET PO SCH (08:09)
[2023-02-17] MEDS: CETIRIZINE HCL 10 MG TABLET PO SCH (08:09)
[2023-02-17] MEDS: AMLODIPINE 5 MG TABLET PO SCH (08:09)
[2023-02-17] MEDS: VENLAFAXINE XR 150 MG CAP.SR.24H PO SCH (08:11)
[2023-02-17] MEDS: INSULIN REGULAR, HUMAN 300 UNIT/3 ML VIAL SQ PRN ×3 (08:12→20:46)
[2023-02-17 10:50] VITALS: BP 127/58
[2023-02-17] MEDS: buPROPion XL 150 MG TAB.SR.24H PO SCH (11:28)
[2023-02-17] MEDS ORDERED: IV NS 1000 ML 1,000 ML IV ONE (11:30)
[2023-02-17 15:59] VITALS: BP 118/58
[2023-02-17] MEDS: ATORVASTATIN 40 MG TABLET PO SCH (20:15)
[2023-02-17] MEDS: QUETIAPINE FUMARATE 25 MG TABLET PO SCH (20:15)
[2023-02-17 20:38] VITALS: BP 98/49
[2023-02-17] MEDS: CEFTRIAXONE 1 G in IV DEXTROSE 5% 50 ML IV SCH (22:03)
[2023-02-18 00:07] VITALS: BP 107/51
[2023-02-18 04:14] VITALS: BP 113/56
[2023-02-18 05:31] LABS: HEMATOCRIT 35.4 % (36.7-47.1); MEAN CORPUSCULAR HEMOGLOBIN 27.7 uug (23.8-33.4); MEAN CORPUSCULAR VOLUME 84.4 fL (73.0-96.2); PLATELET COUNT (AUTO) 163 K/uL (152-348)
[2023-02-18 05:46] LABS: CREATININE 0.8 mg/dL (0.6-1.3); MAGNESIUM 1.7 mg/dL (1.8-2.4); PHOSPHOROUS 3.6 mg/dL (2.5-4.9); POTASSIUM 3.9 mmol/L (3.5-5.1)
[2023-02-18] MEDS: BLOOD SUGAR DIAGNOSTIC 1 EACH STRIP VI SCH ×3 (06:46→15:51)
[2023-02-18] MEDS: AMLODIPINE 5 MG TABLET PO SCH (08:07)
[2023-02-18] MEDS: VENLAFAXINE XR 150 MG CAP.SR.24H PO SCH (08:07)
[2023-02-18] MEDS: buPROPion XL 150 MG TAB.SR.24H PO SCH (08:07)
[2023-02-18] MEDS: CETIRIZINE HCL 10 MG TABLET PO SCH (08:07)
[2023-02-18] MEDS: METOPROLOL SUCCINATE XL 25 MG TAB.SR.24H PO SCH (08:08)
[2023-02-18] MEDS: DOXYCYCLINE HYCLATE 100 MG TABLET PO SCH ×2 (08:08→16:18)
[2023-02-18] MEDS: ASPIRIN 81 MG TAB.CHEW PO SCH (08:08)
[2023-02-18] MEDS: BENAZEPRIL HCL 20 MG TABLET PO SCH (08:08)
[2023-02-18] MEDS ORDERED: MAGNESIUM OXIDE 400 MG TABLET PO ONE (11:00)
[2023-02-18] MEDS: INSULIN REGULAR, HUMAN 300 UNIT/3 ML VIAL SQ PRN (11:06)
[2023-02-18] MEDS ORDERED: AMOX-430 PO (12:50)
[2023-02-18] MEDS ORDERED: DOXY100C5 PO (12:50)
[2023-02-18 16:00] VITALS: BP 117/66
[2023-02-18] MEDS: CEFTRIAXONE 1 G in IV DEXTROSE 5% 50 ML IV SCH (17:04)
== END 2023-02-18 17:30 | disposition home or self-care (01) | DRG 193 ==
LOC: ER 22:13 → TELE3 02-16 01:32
PROVIDERS: ADMIT Nurse Practitioner Acute Care; ATTEND Nurse Practitioner Family
DX: J15.9 Unspecified bacterial pneumonia (principal); I21.A1 Myocardial infarction type 2; E11.65 Type 2 diabetes mellitus with hyperglycemia; Z79.84 Long term (current) use of oral hypoglycemic drugs; I11.9 Hypertensive heart disease without heart failure; Z20.822 Contact with and (suspected) exposure to COVID-19; Z79.899 Other long term (current) drug therapy; F41.9 Anxiety disorder, unspecified; F32.A Depression, unspecified; E78.5 Hyperlipidemia, unspecified; Z90.79 Acquired absence of other genital organ(s); Z79.82 Long term (current) use of aspirin
CPT/HCPCS: 36415; 71045; 83605; 83735; 84100; 84484; 85025; 85730; 87040; 93005; 93307; A4663; G0378; J0696; J1650; J1815; J3475; J7040

== ENCOUNTER 2023-03-04 09:11 | Emergency (ER) | payer MEDICARE, OTHER ==
[~2023-03-04] VITALS: Ht 167.6 cm; Wt 72.6 kg
[~2023-03-04 09:11] MED LIST changes: -AMOX-427 PO; +AMOX-430 PO; +BUPR450T3 PO; -DOXY-326 PO; +DOXY100C5 PO; -METO-356 PO; -MIRA50TA PO; -PRED20TA PO; -PROC10TA29 PO
--- NOTE | 2023-03-04 09:26 | NUR ---
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
[2023-03-04] MEDS ORDERED: GUAIFENESIN/DEXTROMETHORPHAN 5 ML UDC ONE (09:33)
[2023-03-04] MEDS: GUAIFENESIN/DEXTROMETHORPHAN 5 ML UDC PO ONE (09:43)
--- NOTE | 2023-03-04 10:33 | NUR ---
Patient is resting comfortably on gurney with eyes closed, no congestive coughing heard since taking the Robitussin DM medicine, pending rapid STREP throat result at this time.
[2023-03-04] MEDS ORDERED: GUAI5SYR PO (10:55)
--- NOTE | 2023-03-04 10:59 | NUR ---
Patient discharged to home in stable condition. Written and verbal after care instructions given, and explained in Farsi. Patient verbalizes understanding of instructions. Stressed follow up or return to ER for worsening s/s. Pt walked out of ER w/ steady gait.
[2023-03-04 11:00] VITALS: BP 122/60
== END 2023-03-04 11:01 | disposition home or self-care (01) ==
LOC: ER 09:13
DX: R05.9 Cough, unspecified (principal); J02.9 Acute pharyngitis, unspecified; J40 Bronchitis, not specified as acute or chronic; R07.89 Other chest pain; I10 Essential (primary) hypertension; I25.10 Atherosclerotic heart disease of native coronary artery without angina pectoris; E78.5 Hyperlipidemia, unspecified; F17.210 Nicotine dependence, cigarettes, uncomplicated; Z79.82 Long term (current) use of aspirin; Z79.2 Long term (current) use of antibiotics; Z79.899 Other long term (current) drug therapy; Z20.822 Contact with and (suspected) exposure to COVID-19
CPT/HCPCS: 71045; 86403; A4663